=== PATIENT | female | born 1995 | race Caucasian/White ===

== ENCOUNTER 2016-05-02 03:02 | Emergency (ER) | payer OTHER ==
[~2016-05-02] VITALS: Ht 165.1 cm; Wt 65.1 kg
[2016-05-02] MEDS ORDERED: ETONMIS VAGRING (03:12)
[2016-05-02 03:15] VITALS: TEMP 36.8; Ht 165.1 cm; Wt 65.1 kg
[2016-05-02 04:08] LABS: BUN/CREATININE RATIO 11.2 (10-20); CREATININE 0.79 mg/dl (0.60-1.20); POTASSIUM 3.5 mmol/L (3.5-5.1)
[2016-05-02 05:54] VITALS: BP 100/49; PULSE 108; O2SAT 100
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
== END 2016-05-02 06:20 | disposition home or self-care (01) ==
LOC: EDBD 03:02 → C.EDA 03:03
DX: F10.129 Alcohol abuse with intoxication, unspecified (principal); Y90.8 Blood alcohol level of 240 mg/100 ml or more